=== PATIENT | female | born 1940 | race Caucasian/White ===

== ENCOUNTER 2025-08-07 10:40 | Outpatient (CLI) | payer MEDICARE ==
[2025-08-07 12:07] LABS: Estimated GFR - POC 55.0
[2025-08-07] MEDS ORDERED: Iopamidol 300 61% 100 ML VIAL FS ONE (13:07)
== END 2025-08-07 10:41 | disposition home or self-care (01) ==
LOC: CSHCT 10:40
PROVIDERS: ATTEND Internal Medicine Hematology & Oncology
DX: C18.2 Malignant neoplasm of ascending colon (principal); D50.0 Iron deficiency anemia secondary to blood loss (chronic)
CPT/HCPCS: 71260; 74177; 82565; Q9967